=== PATIENT | male | born 1955 | race Caucasian/White ===

== ENCOUNTER 2024-03-05 14:04 | Outpatient (CLI) | payer MEDICARE, OTHER, SELFPAY ==
--- NOTE | ~2024-03-05 | CT_ITS ---
Non-contrast CT scan of the Abdomen and Pelvis Clinical indication: Hernia Technique: 2.5 mm axial scans were obtained through the abdomen and pelvis without intravenous or or al contrast. Dose reduction technique was used on this scan by utilizing automated exposure control a nd iterative reconstruction technique. The dose-length product (DLP) was 659.90 mGy-cm. Findings: Images through the lung bases reveal no abnormalities. Punctate nonobstructing left renal stone present. Probable parapelvic left renal cysts rather than hy dronephrosis. No ureteral stones identified. Probable minimal gallbladder sludge or small stones. Calcified splenic granulomas are present. The li ben, pancreas, and adrenals appear normal. There are atherosclerotic calcifications of the aorta. . There is no evidence of bowel obstruction. Images through the pelvis were performed. There is no evidence of ascites or lymphadenopathy. Urinary bladder unremarkable. Prostate gland markedly enlarged. There are small bilateral fat-containing ing uinal hernias. Impression: Punctate nonobstructing left renal stone. Probable left parapelvic renal cysts rather than hydronephr osis. Small bilateral fat-containing inguinal hernias. Prostatomegaly. Reviewed, dictated and finalized at [facility]. Impression: Punctate nonobstructing left renal stone. Probable left parapelvic renal cysts rather than hydronephrosis. Small bilateral fat-containing inguinal hernias. Prostatomegaly.
== END 2024-03-05 14:05 ==
LOC: MICIMG 14:08
DX: K46.9 Unspecified abdominal hernia without obstruction or gangrene (principal); N20.0 Calculus of kidney; K40.20 Bilateral inguinal hernia, without obstruction or gangrene, not specified as recurrent; N40.0 Benign prostatic hyperplasia without lower urinary tract symptoms
CPT/HCPCS: 74176

== ENCOUNTER 2024-09-12 12:14 | Outpatient (CLI) | payer MEDICARE, OTHER, SELFPAY ==
--- NOTE | ~2024-09-12 | CT_ITS ---
EXAMINATION: CT sinus wo con DATE: 09/12/2024 12:41 INDICATION: Acute sinusitis TECHNIQUE: Computed tomography (CT) of the paranasal sinuses was performed without intravenous contra st. The dose-length product was 272.93 mGy-cm. Automated exposure control and iterative reconstructio n technique were employed. COMPARISON: None FINDINGS: There is mucosal thickening of the left maxillary sinus. Leftward nasal septal deviation. O stiomeatal units are patent. No air-fluid levels. No mucoperiosteal reaction. Mastoids are pneumatize d. There is mild mucosal thickening of the ethmoid sinuses. IMPRESSION: 1. Mild sinus disease involving the ethmoid and left maxillary sinuses. Reviewed, dictated and finalized at location [facility]. [facility]
== END 2024-09-12 12:15 | disposition home or self-care (01) ==
LOC: MICIMG 12:15
PROVIDERS: Visit Provider Family Medicine Sports Medicine
DX: J01.90 Acute sinusitis, unspecified (principal)
CPT/HCPCS: 70486